=== PATIENT | male | born 1945 | race Caucasian/White ===

== ENCOUNTER → 2017-02-17 | Outpatient (CLI) | payer BC | END | disposition home or self-care (01) | LOC: RAD 08:38 | PROVIDERS: ATTEND Internal Medicine Cardiovascular Disease | DX: I65.22 Occlusion and stenosis of left carotid artery (principal); I70.202 Unspecified atherosclerosis of native arteries of extremities, left leg; I10 Essential (primary) hypertension | CPT/HCPCS: 78452; 93017; 93306; 93880; 93978; A9502 ==

== ENCOUNTER → 2018-04-26 | Outpatient (CLI) | payer BC | END | disposition home or self-care (01) | LOC: CFH 15:34 | PROVIDERS: ATTEND Surgery | DX: I65.22 Occlusion and stenosis of left carotid artery (principal) | CPT/HCPCS: 93880 ==